=== PATIENT | male | born 1955 | race African-American/Black ===

== ENCOUNTER 2016-07-13 15:15 | Emergency (ER) | payer OTHER ==
[2016-07-13 15:22] VITALS: BP 111/64; PULSE 67; TEMP 98.5; BMI 29.1
--- NOTE | 2016-07-13 15:57 | PDOC ---
History of Present Illness - General Chief Complaint: Cold Symptoms Stated Complaint: EYE PAIN, RUNNING NOSE Time Seen by Provider: 07/13/16 15:30 History Source: Patient Exam Limitations: No Limitations - History of Present Illness Initial Comments: 07/13/16 15:52 60 yr male with c/o tearing eyes and runny nose for one year. Pt states sneezing as well. Denies fever, no cough or chills. no vision changes or headache no nasal discharge. 07/13/16 15:55 Timing/Duration: other (1 year) Severity: mild Associated Symptoms: reports: denies symptoms Past History - Past Medical History Allergies/Adverse Reactions: Allergies Allergy/AdvReac Type Severity Reaction Status Date / Time No Known Allergies Allergy Verified 07/13/16 15:20 Home Medications: Ambulatory Orders Aspirin [ASA -] 81 mg PO DAILY 12/07/11 Atorvastatin Ca [Lipitor -] 80 mg PO DAILY 01/18/15 Clopidogrel Bisulfate [Plavix -] 75 mg PO DAILY 01/18/15 Lisinopril 5 mg PO DAILY 01/18/15 Metoprolol Succinate [Toprol Xl -] 50 mg PO DAILY 01/18/15 Fluticasone Propionate [Flonase Allergy Relief] 15.8 ml NS DAILY #1 spray.susp 07/13/16 Olopatadine HCl [Pataday] 2.5 ml OP DAILY #1 bottle 07/13/16 Anemia: No Asthma: No Cancer: Yes (PROSTATE CANCER) Cardiac Disorders: Yes ([place] 06/19/14) CVA: No COPD: No CHF: No Dementia: No Diabetes: No GI Disorders: Yes (COLONIC POLYPS) Disorders: Yes (PROSTATE CANCER) HTN: Yes Hypercholesterolemia: Yes Liver Disease: No Seizures: No Thyroid Disease: No - Surgical History Abdominal Surgery: No Appendectomy: No Cardiac Surgery: Yes (CARDIAC STENTS 06/19/14) Cholecystectomy: No Lung Surgery: No Neurologic Surgery: No Orthopedic Surgery: Yes (RIGHT HIP PINNING) - Psycho/Social/Smoking Cessation Hx Suicidal Ideation: No Smoking History: Never smoked Have you smoked in the past 12 months: No Number of Cigarettes Smoked Daily: 0 If you are a former smoker, when did you quit?: 1990 Information on smoking cessation initiated: No Hx Alcohol Use: No Drug/Substance Use Hx: No Substance Use Type: None Hx Substance Use Treatment: No Review of Systems - Review of Systems Able to Perform ROS?: Yes Is the patient limited Tamazight proficient: No Constitutional: No: Symptoms Reported HEENTM: Yes: See HPI *Physical Exam - Vital Signs Last Vital Signs Temp Pulse Resp BP Pulse Ox 98.5 F 67 18 111/64 100 07/13/16 15:20 07/13/16 15:20 07/13/16 15:20 07/13/16 15:20 07/13/16 15:20 - Physical Exam General Appearance: Yes: Nourished HEENT: positive: EOMI, NELA, Normal ENT Inspection, TMs Normal, Pharynx Normal Neck: positive: Supple. negative: Tender Respiratory/Chest: positive: Lungs Clear, Normal Breath Sounds. negative: Chest Tender Cardiovascular: positive: Regular Rhythm, Regular Rate Gastrointestinal/Abdominal: positive: Normal Bowel Sounds, Soft Musculoskeletal: positive: Normal Inspection Extremity: positive: Normal Capillary Refill, Normal Inspection, Normal Range of Motion Integumentary: positive: Normal Color, Dry, Warm Neurologic: positive: Fully Oriented, Alert, Normal Mood/Affect, Normal Response , Motor Strength 5/5 Medical Decision Making - Medical Decision Making 07/13/16 15:56 cc: itchy eyes, tearing , runny nose and sneezing no symptoms at present pt has not followed with ENT or loading checker in the year pt has used claritin and ptaday, states he ran out of pataday will prescribe flonase and pataday follow with ENT *DC/Admit/Observation/Transfer Diagnosis at time of Disposition: Allergic rhinitis Qualifiers: Allergic rhinitis seasonality: unspecified seasonality Allergic rhinitis trigger: unspecified Qualified Code(s): J30.9 - Allergic rhinitis, unspecified - Discharge Dispostion Disposition: HOME Condition at time of disposition: Stable - Prescriptions Prescriptions: Fluticasone Propionate [Flonase Allergy Relief] 15.8 ml NS DAILY #1 spray.susp Olopatadine HCl [Pataday] 2.5 ml OP DAILY #1 bottle - Referrals Referrals: Siobhan Ceron MD [Primary Care Provider] - Ortega Jim MD [Staff Physician] - - Patient Instructions Additional Instructions: follow with ENT and allergy for follow up use flonase as directed, pataday as directed
== END 2016-07-13 16:16 | disposition home or self-care (01) ==
LOC: JERFT 15:15
DX: J30.9 Allergic rhinitis, unspecified (principal); I25.2 Old myocardial infarction; I10 Essential (primary) hypertension; E78.00 Pure hypercholesterolemia, unspecified; Z85.46 Personal history of malignant neoplasm of prostate
CPT/HCPCS: 99281-25

== ENCOUNTER 2020-01-30 11:27 | Emergency (ER) | payer OTHER ==
[2020-01-30 11:31] VITALS: BMI 29.2
--- NOTE | 2020-01-30 12:13 | PDOC ---
History of Present Illness - General Chief Complaint: Pain, Acute Stated Complaint: PAIN Time Seen by Provider: 01/30/20 12:12 History Source: Patient Exam Limitations: No Limitations - History of Present Illness Initial Comments: 01/30/20 12:12 HPI: This is a 64 y/o male with a PMH of [place] s/p 2 stents, pre-diabetes, and prostate ca treated with radioactive seeds presenting to the ED because of 3 days of 7/10, sharp right arm pain that began in his wrist and radiates up to his shoulder. 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 The pain is worse at night when he is laying on his right side. The pain decreases when he is moving throughout the day. This does not feel like his previous [place], and he has no accompanying SOB, N/V, diaphoresis. Patient reports a negative stress test within the past 2 weeks. ROS: GENERAL/CONSTITUTIONAL: No fever/chills. No weakness. HEENT: No blurry vision or vision loss CARDIOVASCULAR: No chest pain or shortness of breath. RESPIRATORY: No cough, wheezing GASTROINTESTINAL: No nausea, vomiting MUSCULOSKELETAL: No joint or muscle swelling. Pain in right wrist radiating to elbow and shoulder. GENITOURINARY: Denies dysuria, hematuria SKIN: No rash NEUROLOGIC: No headache or change in strength/sensation. HEMATOLOGIC/LYMPHATIC: No anemia, easy bleeding, or history of blood clots. PMH: [place] s/p 2 stents, pre-diabetes, prostate ca treated with radioactive seeds PSx: Right femur Social Hx: Denied etoh and tobacco Meds: See nurse note Allergies: KNDA PE: GENERAL: Awake, alert, and fully oriented, in no acute distress. Patient is non-toxic appearing, laying in bed with his in the room. Conversational. HEAD: No signs of trauma EYES: PERRLA, EOMI NECK: Normal ROM, supple, no lymphadenopathy, JVD, or masses LUNGS: Breath sounds equal, clear to auscultation bilaterally. HEART: Regular rate and rhythm, normal S1 and S2, no murmurs, rubs or gallops. Palpable radial pulses in bilateral extremities. ABDOMEN: Soft, nontender, normoactive bowel sounds. EXTREMITIES: Normal range of motion, no peripheral edema. No decreased ROM in right arm. No tenderness to palpation in right shoulder, arm, or wrist. No focal neurological deficits. NEUROLOGICAL: Cranial nerves II through XII grossly intact. Normal speech, normal gait SKIN: Warm, Dry, normal turgor, no rashes or lesions noted. MDM: 01/30/20 12:36 This is a 64 y/o male with a PMH of [place] s/p 2 stents, pre-diabetes, prostate ca treated with radioactive seeds presenting to the ED because of 3 days of 7/10, sharp, right arm pain that began in his wrist and radiates up to his shoulder. - Pain is worse at night when patient is laying on his right arm, improved with exertion - No accompanying symptoms concerning for cardiac origin. Does not feel like his previous [place]. - Given cardiac history, will do Trop, CBC, CMP, EKG - Will treat pain with tylenol, motrin and reassess - Pain sounds musculoskeletal not likely cardiac 01/30/20 13:40 - CBC WNL - Trop neg - HEART score of 3 01/30/20 13:56 - Pt reports improvement in pain since given the medication - He will follow-up with his erisa attorney this week - Stable to d/c with return precautions. Past History - Medical History Allergies/Adverse Reactions: Allergies Allergy/AdvReac Type Severity Reaction Status Date / Time No Known Allergies Allergy Verified 01/30/20 11:28 Home Medications: Ambulatory Orders Aspirin [ASA -] 81 mg PO DAILY 12/07/11 Atorvastatin Ca [Lipitor -] 80 mg PO DAILY 01/18/15 Clopidogrel Bisulfate [Plavix -] 75 mg PO DAILY 01/18/15 Lisinopril 5 mg PO DAILY 01/18/15 Metoprolol Succinate [Toprol Xl -] 50 mg PO DAILY 01/18/15 Fluticasone Propionate [Flonase Allergy Relief] 15.8 ml NS DAILY #1 spray.susp 07/13/16 Olopatadine HCl [Pataday] 2.5 ml OP DAILY #1 bottle 07/13/16 Anemia: No Asthma: No Cancer: Yes (PROSTATE CANCER) Cardiac Disorders: Yes ([place] 06/19/14) CVA: No COPD: No CHF: No Dementia: No Diabetes: No GI Disorders: Yes (COLONIC POLYPS) Disorders: Yes (PROSTATE CANCER) HTN: Yes Hypercholesterolemia: Yes Liver Disease: No Seizures: No Thyroid Disease: No - Surgical History Abdominal Surgery: No Appendectomy: No Cardiac Surgery: Yes (CARDIAC STENTS 06/19/14) Cholecystectomy: No Lung Surgery: No Neurologic Surgery: No Orthopedic Surgery: Yes (RIGHT HIP PINNING) - Psycho-Social/Smoking History Smoking History: Never smoked Have you smoked in the past 12 months: No Number of Cigarettes Smoked Daily: 0 If you are a former smoker, when did you quit?: 1990 - Substance Abuse Hx (Audit-C & DAST Scrn) How often the patient has a drink containing alcohol: Monthly or less How often the patient has six or more drinks on one occasion: Less than monthly Score: In Men: 4 or > Positive; In Women: 3 or > Positive: 2 Screen Result (Pos requires Nsg. Audit-10AR): Negative *Physical Exam - Vital Signs Last Vital Signs Temp Pulse Resp BP Pulse Ox 97.8 F 91 H 18 133/79 99 01/30/20 11:28 01/30/20 11:28 01/30/20 11:28 01/30/20 11:28 01/30/20 11:28 Heart Score/ECG Review - History History: Slightly suspicious - Electrocardiogram EKG: Non specific repolarization disturbance - Age Age: 45-65 - Risk Factors Based on the list above the patient has:: 1-2 risk factors - Troponin Troponin: </= normal limit - Score Heart Score - Total: 3 - ECG Intrepretation Comment:: 01/30/20 14:[address] elevations. T-wave inversions in III and AVF. No previous EKG for comparison, but hx of previous [place]. Vent rate 88bpm, GA interval 172ms, QRS duration 88ms, QT/QTc 360/435 ED Treatment Course - LABORATORY CBC & Chemistry Diagram: 01/30/20 11:54 01/30/20 11:54 Discharge - Discharge Information Problems reviewed: Yes Clinical Impression/Diagnosis: Right arm pain Condition: Stable Disposition: HOME - Admission No - Follow up/Referral Referrals: Siobhan Ceron MD [Primary Care Provider] - - Patient Discharge Instructions Patient Printed Discharge Instructions: DI for Musculoskeletal Pain Additional Instructions: You were seen in the emergency department for Right arm and shoulder pain. Home Care and Follow Up: - You may use over the counter medications as needed for pain at home. 650 acetaminophen (Tylenol) or 600mg ibuprofen (Motrin or Advil) can be used every 6-8 hours. If needed for continued pain, these medications may be alternated every 3-4 hours. For example, if you take ibuprofen at 9am, you may take acetaminophen at noon, ibuprofen at 3pm, etc. - It is strongly recommended that you take ibuprofen with food to help prevent stomach irritation. If you are taking it for more than a day or two, you may consider taking an acid medication such as Pepcid, available over the counter, to protect your stomach. This should be taken first thing in the morning 30-60 minutes before any food or medications. - You may buy a numbing patch that contains lidocaine (the patch is 4% lidocaine) that can be placed over the areas of greatest pain. The lidocaine patch may be placed for 12 hours then removed for 12 hours. - Try using an ice pack for 20 minutes every hour or a heating pad for additional pain control. These should NOT be used over the lidocaine patch, but you may place them over the areas of pain while the patch is off. - Do not stop moving around. As much as you can tolerate, continue to do light exercise and stretching exercises. Increase your activity level as much as you can tolerate daily. - If your pain does not improve over the next week, please follow up with your primary care doctor. - Seek immediate medical care if you have significant worsening of your symptoms, or if you have chest pain, N/V, SOB or any new or concerning symptoms. - Post Discharge Activity
[2020-01-30 12:40] LABS: BASO % 0.3 % (0-2.0); EOS % 4.3 % (0-4.5); HEMATOCRIT 38.2 % (35.4-49); HEMOGLOBIN 12.4 GM/dL (11.7-16.9); LYMPH % 44.2 % (8-40); MCH 27.6 pg (25.7-33.7); MCHC 32.4 g/dl (32.0-35.9); MEAN CELL VOLUME 85.2 fl (80-96); MEAN PLT VOLUME 7.5 fl (7.5-11.1); MONO % 10.4 % (3.8-10.2); NEUT % 40.8 % (42.8-82.8); PLATELET COUNT 214 K/MM3 (134-434); RBC 4.49 M/mm3 (4.00-5.60); RDW 13.9 % (11.9-15.9); WHITE BLOOD COUNT 5.4 K/mm3 (4.0-10.0)
[2020-01-30] MEDS ORDERED: ACETAMINOPHEN 1000 MG/100 ML VIAL (NON FORMULARY) IVPB ONE (12:47)
[2020-01-30] MEDS ORDERED: ACETAMINOPHEN INJECTION 100 ML IVPB ONE (12:54)
--- NOTE | 2020-01-30 13:01 | PDOC ---
Attending Attestation - Resident Resident Name: Brisa Roland - ED Attending Attestation I have performed the following: I have examined & evaluated the patient, The case was reviewed & discussed with the resident, I agree w/resident's findings & plan - HPI HPI: 01/30/20 12:58 64 y/o male with a PMH of [place] s/p 2 stents, pre-diabetes, prostate ca treated with radioactive seeds presenting to the ED because of 3 days of 710, sharp, right arm pain that began in his wrist and radiates up to his shoulder. 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 The pain is worse at night, and he reports increased pain and numbness when he lays on his right side. The pain decreases when he is moving throughout the day. This does not feel like his previous [place], and he has no accompanying SOB, N/V, diaphoresis. Patient reports a negative stress test within the past 2 weeks. - Physicial Exam PE: 01/30/20 12:58 Agree with the resident's HPI and PE as documented in the electronic medical record. NAD, well appearing, EOMI, PERRL, nl conjunctiva, anicteric; neck supple. lungs clear, RRR, abdomen soft nontender. no rebound, guarding. Back nontender. LIM x4, no focal neuro deficits. No peripheral edema. normal color for ethnicity, WWP. There is no reproducible tenderness to his chest shoulder or arm. No wrist tenderness noted. Neurovascularly intact, 2+ radialis pulses. 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 - Medical Decision Making 01/30/20 12:59 Vital Signs Temp Pulse Resp BP Pulse Ox 97.8 F 91 H 18 133/79 99 01/30/20 11:28 01/30/20 11:28 01/30/20 11:28 01/30/20 11:28 01/30/20 11:28 Vital signs reviewed within normal limits No active chest pain. Patient does have reproducible shoulder and arm pain associated with numbness. Over the last several days. There could be a musculoskeletal component to it. But given his comorbidities, will consider ACS, arrhythmia. Differential diagnosis also includes nerve palsy and inflammation. unlikely CVA or neurologic, as pt without neuro findings, intact; has more right arm pain worse with lying there and with movement, which makes it more likely nerve related or msk Analgesia with tylenol and nsaid, reassess Labs and lites, cardiac profile Chest x-ray. EKG normal sinus rhythm 88 bpm, no interval abnormalities, narrow QRS, ST and T wave segments and morphology normal. Nonspecific T wave abnormalities 01/30/20 13:38 labs wnl, neg trop, reassuring cxr is unremarkable, no effusion, edema, infiltrate or cardiomegaly Pt to be discharged in stable condition. Patient and family made aware of clinical impression, treatment recommendations and disposition plan, return precautions discussed (including but not limited to new or persistent/worsening symptoms, pain, fevers, or signs of infection, chest pain, respiratory distress, inability to tolerate oral intake, dehydration, syncope, or neurologic changes). Follow up with PMD and/or specialist as recommended, follow up information provided, take medications as instructed for duration of time. continue with supportive care, avoid triggers and precipitants. All questions answered to patient's satisfaction and expressed understanding and comfort with this. At the time of discharge, the patient is alert, clinically improved, tolerating po and verbalizes understanding of instructions, satisfied with the care received and felt comfortable with the plan. Patient does not suffer from an acute life- threatening medical condition at this time and is safe for outpatient follow- up. Heart Score/ECG Review #1 ECG reviewed & interpreted by me at: 11:45 General ECG Interpretation: Sinus Rhythm, Normal Rate, Normal Intervals 01/30/20 13:00 EKG normal sinus rhythm 88 bpm, no interval abnormalities, narrow QRS, ST and T wave segments and morphology normal. Nonspecific T wave abnormalities Discharge - Discharge Information Problems reviewed: Yes Clinical Impression/Diagnosis: Right arm pain Condition: Stable Disposition: HOME - Admission No - Follow up/Referral Referrals: Siobhan Ceron MD [Primary Care Provider] - - Patient Discharge Instructions Patient Printed Discharge Instructions: DI for Musculoskeletal Pain Additional Instructions: You were seen in the emergency department for Right arm and shoulder pain. Home Care and Follow Up: - You may use over the counter medications as needed for pain at home. 650 acetaminophen (Tylenol) or 600mg ibuprofen (Motrin or Advil) can be used every 6-8 hours. If needed for continued pain, these medications may be alternated every 3-4 hours. For example, if you take ibuprofen at 9am, you may take acetaminophen at noon, ibuprofen at 3pm, etc. - It is strongly recommended that you take ibuprofen with food to help prevent stomach irritation. If you are taking it for more than a day or two, you may consider taking an acid medication such as Pepcid, available over the counter, to protect your stomach. This should be taken first thing in the morning 30-60 minutes before any food or medications. - You may buy a numbing patch that contains lidocaine (the patch is 4% lidocaine) that can be placed over the areas of greatest pain. The lidocaine patch may be placed for 12 hours then removed for 12 hours. - Try using an ice pack for 20 minutes every hour or a heating pad for additional pain control. These should NOT be used over the lidocaine patch, but you may place them over the areas of pain while the patch is off. - Do not stop moving around. As much as you can tolerate, continue to do light exercise and stretching exercises. Increase your activity level as much as you can tolerate daily. - If your pain does not improve over the next week, please follow up with your primary care doctor. - Seek immediate medical care if you have significant worsening of your symptoms, or if you have chest pain, N/V, SOB or any new or concerning symptoms. - Post Discharge Activity
[2020-01-30] MEDS ORDERED: IBUPROFEN 600 MG TABLET (FP) PO ONE ×2 (13:04→13:44)
[2020-01-30 13:22] LABS: ALBUMIN 3.7 g/dl (3.4-5.0); ALK PHOS 75 U/L (45-117); ANION GAP 6 MMOL/L (8-16); BILIRUBIN,TOTAL 0.3 mg/dL (0.2-1); BLOOD UREA NITROGEN 19.6 mg/dL (7-18); CALCIUM 8.9 mg/dL (8.5-10.1); CHLORIDE 106 mmol/L (98-107); CO2 31 mmol/L (21-32); CREATININE 1.1 mg/dL (0.55-1.3); POTASSIUM 4.3 mmol/L (3.5-5.1); SGOT/AST 26 U/L (15-37); SGPT/ALT 25 U/L (13-61); SODIUM 143 mmol/L (136-145); TOT PROT 7.3 g/dl (6.4-8.2)
[2020-01-30 13:50] LABS: GLUCOSE,RANDOM 109 mg/dL (74-106)
[2020-01-30 14:59] VITALS: BP 112/70; PULSE 75; TEMP 98.4
--- NOTE | 2020-02-02 22:03 | EKG ---
Test Reason : Blood Pressure : / mmHG Vent. Rate : 088 BPM Atrial Rate : 088 BPM P-R Int : 172 ms QRS Dur : 088 ms QT Int : 360 ms P-R-T Axes : 059 -36 -04 degrees QTc Int : 435 ms NORMAL SINUS RHYTHM LEFT AXIS DEVIATION ABNORMAL ECG WHEN COMPARED WITH ECG OF 25-JAN-1999 12:59, NO SIGNIFICANT CHANGE WAS FOUND Confirmed by BRYAN PIÑA MD ([id number]) on 02/02/2020 10:02:51 PM Referred By: Confirmed By:BRYAN PIÑA MD
== END 2020-01-30 14:59 | disposition home or self-care (01) ==
LOC: JER 11:27
PROC: 3E033NZ Introduction of Analgesics, Hypnotics, Sedatives into Peripheral Vein, Percutaneous Approach (ICD-10-PCS; principal; 2020-01-30)
DX: M79.601 Pain in right arm (principal)
CPT/HCPCS: 36415; 71046-TC-FY; 80053; 82550; 82553; 84484; 85025; 86900; 93005; 93010; 99285-25; J0131

== ENCOUNTER 2022-08-28 16:16 | Emergency (ER) | payer OTHER ==
[2022-08-28 16:58] VITALS: BP 118/69; PULSE 89; RESP 18; TEMP 98; BMI 30.7
[2022-08-28 17:40] LABS: EPI CELLS 8 /uL (0-25.1); HYALINE CASTS 0 /uL (0-3.1); URINE APPEARANCE CLEAR; URINE BACTERIA 2 /uL (0-1359); URINE BILIRUBIN NEGATIVE (NEGATIVE); URINE COLOR YELLOW; URINE GLUCOSE (UA) NEGATIVE (NEGATIVE); URINE KETONE NEGATIVE (NEGATIVE); URINE LEUK ESTERASE TRACE (NEGATIVE); URINE NITRITE NEGATIVE (NEGATIVE); URINE PROTEIN NEGATIVE (NEGATIVE); URINE RBC 11 /uL (0-23.9); URINE UROBILINOGEN 0.2 mg/dL (0.2-1.0); URINE WBC 21 /uL (0-25.8)
[2022-08-28] MEDS ORDERED: ACETAMINOPHEN 1000 MG/100 ML BAG IVPB ONE (18:34)
[2022-08-28] MEDS ORDERED: ACETAMINOPHEN INJECTION 100 ML IVPB ONE (19:00)
[2022-08-28 19:34] LABS: BASO % 0.4 % (0-2.0); EOS % 1.8 % (0-4.5); HEMATOCRIT 39.5 % (35.4-49); LYMPH % 22.6 % (8-40); MCH 26.9 pg (25.7-33.7); MCHC 32.9 g/dl (32.0-35.9); MEAN CELL VOLUME 81.7 fl (80-96); MEAN PLT VOLUME 6.9 fl (7.5-11.1); MONO % 12.4 % (3.8-10.2); NEUT % 62.8 % (42.8-82.8); PLATELET COUNT 272 10^3/uL (134-434); RBC 4.84 M/mm3 (4.00-5.60); RDW 14.2 % (11.9-15.9); WHITE BLOOD COUNT 5.2 K/mm3 (4.0-10.0)
[2022-08-28 19:44] LABS: INR 1.16 (0.83-1.09); PROTHROMBIN TIME (PATIENT) 13.4 SEC (9.7-13.0)
[2022-08-28 19:47] LABS: ACTIVATED PTT 33.2 SECONDS (25.2-36.5)
[2022-08-28 19:57] LABS: ALBUMIN 3.9 g/dl (3.4-5.0); BLOOD UREA NITROGEN 13.8 mg/dL (7-18)
[2022-08-28 20:01] LABS: TOT PROT 7.7 g/dl (6.4-8.2)
[2022-08-28 20:02] LABS: BILIRUBIN,TOTAL 0.4 mg/dL (0.2-1)
== END 2022-08-29 01:32 | disposition home or self-care (01) ==
LOC: JER 16:16
PROC: 3E033NZ Introduction of Analgesics, Hypnotics, Sedatives into Peripheral Vein, Percutaneous Approach (ICD-10-PCS; principal; 2022-08-28)
DX: S86.111A Strain of other muscle(s) and tendon(s) of posterior muscle group at lower leg level, right leg, initial encounter (principal); S86.112A Strain of other muscle(s) and tendon(s) of posterior muscle group at lower leg level, left leg, initial encounter; M79.10 Myalgia, unspecified site; X58.XXXA Exposure to other specified factors, initial encounter; Y93.01 Activity, walking, marching and hiking
CPT/HCPCS: 36415; 71046-TC-FY; 74176-TC; 80053; 81003; 82550; 82553; 84484; 85025; 85610; 85651; 85730; 86140; 87086; 93005; 93010; 99285-25